=== PATIENT | female | born 1970 | race Caucasian/White ===

== ENCOUNTER 2022-11-01 10:38 | Emergency (ER) | payer BC ==
[~2022-11-01] VITALS: Ht 162.6 cm; Wt 68.9 kg
[2022-11-01 10:51] VITALS: BP 153/82
== END 2022-11-01 15:03 | disposition left against medical advice (07) ==
LOC: MED 10:38
DX: H53.142 Visual discomfort, left eye (principal); Z53.21 Procedure and treatment not carried out due to patient leaving prior to being seen by health care provider
CPT/HCPCS: 99281